=== PATIENT | female | born 1965 | race Caucasian/White ===

== ENCOUNTER 2018-08-24 08:07 | Day surgery (SDC) | payer OTHER ==
[2018-08-24] MEDS ORDERED: FENTAnyl 50 MCG/ML VIAL (10:00)
[2018-08-24] MEDS ORDERED: MIDAZOLAM 1 MG/ML 2 ML INJ ×2 (10:01)
== END 2018-08-24 10:45 | disposition home or self-care (01) ==
LOC: GIL 08:07
DX: Z12.11 Encounter for screening for malignant neoplasm of colon (principal); K29.70 Gastritis, unspecified, without bleeding; K64.8 Other hemorrhoids
CPT/HCPCS: 43239; 88305; 88312